=== PATIENT | male | born 1980 | race Caucasian/White ===

== ENCOUNTER 2018-01-09 23:58 | Inpatient (IN) | payer OTHER ==
[2018-01-10] MEDS ORDERED: NS 500 ML IV ONE (00:21)
[2018-01-10] MEDS ORDERED: IPRATROPIUM/ALBUTEROL 3 ML DEYVIAL IH ONE (00:21)
--- NOTE | 2018-01-10 00:27 | EDPHY ---
H & P Stated Complaint: Poss elevation sickness, Time Seen by Provider: 01/10/18 00:07 HPI/ROS: HPI The patient presents with cough and shortness of breath for the last several days. The patient has had a cough for the last 3-4 days which is intermittent, productive of a clear whitish sputum. Yesterday, he traveled on an airplane from [place] to [place] and drove to [place]. His symptoms worsened then. He continued to have a cough, however this morning his sputum became blood tinged. He felt generally short of breath throughout the course of the day and rested. He did not exert himself. He had a low-grade fever but has been checking his temperature at home and has not had anything more than 100. He does not have any chest pain. He does not have any leg swelling. He does not have any personal or family history of DVT PE. He is complaining of a frontal headache. He thought he had altitude sickness. He has never travel to altitude before. REVIEW OF SYSTEMS Constitutional: No fever, no chills. Eyes: No discharge. ENT: No sore throat. Cardiovascular: PNo chest pain, no palpitations. Respiratory: See HPI Gastrointestinal: No abdominal pain, no vomiting. Genitourinary: No hematuria. Musculoskeletal: No back pain. Skin: No rashes. Neurological: No headache. PMHx: Hypertension, not on medications Soc Hx: No tobacco use, positive for marijuana use, visiting from [place] PHYSICAL General Appearance: Alert, no distress Eyes: Pupils equal and round no pallor or injection ENT, Mouth: Mucous membranes moist Respiratory: Speaking full sentences, no retractions, coarse breath sounds bilaterally Cardiovascular: Tachycardic rate and regular rhythm Gastrointestinal: Abdomen is soft and non-tender, no masses, bowel sounds normal Neurological: A&O, moves all extremities Skin: Warm and dry, no rashes Musculoskeletal: Neck is supple non tender Extremities: symmetrical, full range of motion Psychiatric: Patient is oriented X 3, there is no agitation Source: Patient Exam Limitations: No limitations - Personal History Current Tetanus Diphtheria and Acellular Pertussis (TDAP): Yes - Medical/Surgical History Hx Asthma: No Hx Chronic Respiratory Disease: No Hx Diabetes: No Hx Cardiac Disease: No Hx Renal Disease: No Hx Cirrhosis: No Hx Alcoholism: No Hx HIV/AIDS: No Hx Splenectomy or Spleen Trauma: No Other PMH: borderline HTN - Social History Smoking Status: Never smoked Constitutional: Initial Vital Signs Temperature (C) 37.3 C 01/10/18 00:03 Heart Rate 120 H 01/10/18 00:03 Respiratory Rate 20 01/10/18 00:03 Blood Pressure 164/105 H 01/10/18 00:03 O2 Sat (%) 89 L 01/10/18 00:03 O2 Delivery Mode Nasal Cannula O2 (L/minute) 2 Allergies/Adverse Reactions: No Known Allergies Allergy (Unverified 01/10/18 00:02) Home Medications: Medication Instructions Recorded NK [No Known Home Meds] 01/10/18 Medical Decision Making - Diagnostics EKG Interpretation: EKG: Complete interpretation has been separately recorded in the [email or web address] archive. Summary impression: Left axis deviation with left anterior fascicular block Imaging Results: Chest x-ray two views shows right greater than left interstitial markings with fluid in the right fissure, interpreted by me, radiology interpretation is pending. CT scan of chest with IV contrast demonstrates no pulmonary embolism, there is right upper lobe and right middle lobe infiltrates which could be aspiration pneumonia verses pneumonia, high altitude pulmonary edema is less likely, discussed with Dr. Healy of Radiology. Imaging: Discussed imaging studies w/ pumper gauger apprentice Radiologist Procedures: Bedside cardiac Ultrasound- performed and interpreted by me. Indication: Shortness of breath Findings: Hyperdynamic, no pericardial effusion, IVC is distended, B lines present in the right lung field Impression: Distended IVC Differential Diagnosis: This is a 37-year-old healthy male who presents with cough and shortness of breath, over the last 1 day developing hemoptysis. On arrival, he is tachycardic, hypoxic. He is requiring 6 L nasal cannula to maintain oxygen saturations. His Differential diagnosis includes pulmonary embolism, pneumonia, influenza, bronchiectasis. 12:20 a.m. Initial patient encounter, explained diagnosis and treatment plan with the patient. I will start him on a small fluid bolus, neb. 1:16 a.m.- Patient's oxygen saturations have improved, especially while at rest. He is now in the low 90s at rest, however with ambulation, his oxygen levels are in the 70s. His labs have returned and do reveal elevated BNP and troponin. Given EKG showing no ST segment changes and low suspicion for ACS, I will not give him aspirin. The D-dimer is negative, I have a high suspicion for pulmonary embolism. It did a bedside ultrasound that reveals no right heart enlargement though IVC is enlarged and B lines are present. Plan for CT PE. 2:15 a.m.- Patient's CT scan demonstrates right upper and middle lobe airspace disease consistent with aspiration or pneumonia. There is no pulmonary embolism. His he feels well currently and is on about 2 L nasal cannula. I will treat him with ceftriaxone and azithromycin for community-acquired pneumonia. I do not see any aspiration risk in his case. I have discussed the case with the hospitalist Dr. Hook and we will admit the patient. I have explained the diagnosis and treatment plan with the patient. - Data Points Laboratory Results: Laboratory Results 01/10/18 00:20 01/10/18 00:20 Medications Given: Discontinued Medications Albuterol/Ipratropium (Duoneb) 3 ml IH EDNOW ONE Stop: 01/10/18 00:22 Last Admin: 01/10/18 00:31 Dose: 3 ml Sodium Chloride (Ns) 500 mls @ 1,000 mls/hr IV EDNOW ONE PRN Reason: Protocol Stop: 01/10/18 00:50 Last Admin: 01/10/18 00:31 Dose: 500 mls Sodium Chloride (Ns) 1,000 mls @ 0 mls/hr IV EDNOW ONE; Wide Open PRN Reason: Protocol Stop: 01/10/18 00:56 Last Admin: 01/10/18 02:16 Dose: 1,000 mls Azithromycin 500 mg/ Sodium (Chloride) 255 mls @ 255 mls/hr IV EDNOW ONE PRN Reason: Protocol Stop: 01/10/18 03:16 Last Admin: 01/10/18 03:22 Dose: 255 mls Ceftriaxone Sodium/Dextrose (Rocephin 1 Gm (Premix)) 50 mls @ 100 mls/hr IV EDNOW ONE PRN Reason: Protocol Stop: 01/10/18 02:46 Last Admin: 01/10/18 02:30 Dose: 50 mls Sodium Chloride (Ns) 1,000 mls @ 125 mls/hr IV CONT SERJIO Stop: 07/09/18 02:59 Last Admin: 01/10/18 03:22 Dose: 1,000 mls Departure - Departure Disposition: [facility] Acute Clinical Impression: Hypoxia, Elevated troponin I level Pneumonia Qualifiers: Pneumonia type: due to unspecified organism Laterality: right Lung location: unspecified part of lung Qualified Code(s): J18.9 - Pneumonia, unspecified organism Condition: Fair
[2018-01-10 00:29] LABS: PLATELET COUNT 216 10^3/uL (150-400)
--- NOTE | 2018-01-10 00:30 | CPEKG ---
Heart Rate: 106 RR Interval: 566 P-R Interval: 156 QRSD Interval: 86 QT Interval: 332 QTC Interval: 441 P [place]: 50 QRS [place]: -57 T Wave [place]: 30 EKG Severity - ABNORMAL ECG - EKG Impression: SINUS TACHYCARDIA EKG Impression: LEFT ANTERIOR FASCICULAR BLOCK EKG Impression: CONSIDER ANTEROSEPTAL INFARCT Electronically Signed By: Lolis Cantrell 10-Jan-2018 05:14:57
[2018-01-10] MEDS ORDERED: NS 1,000 ML IV ONE (00:55)
[2018-01-10] MEDS ORDERED: IOPAMIDOL (ISOVUE-300) 100 ML BTL ONE (01:13)
[2018-01-10] MEDS ORDERED: IOPAMIDOL (ISOVUE 370) 100 ML BTL IV ONE ×2 (01:14→01:41)
[2018-01-10] MEDS ORDERED: AZITHROMYCIN IV 500 MG in NS 250 ML IV ONE (02:17)
[2018-01-10] MEDS ORDERED: LORazepam 0.5 MG TAB PO PRN (02:58)
[2018-01-10] MEDS ORDERED: ALBUTEROL 3 ML DEYVIAL IH PRN (02:58)
[2018-01-10] MEDS ORDERED: ACETAMINOPHEN 325 MG TAB PO PRN (02:58)
[2018-01-10] MEDS ORDERED: diphenhydrAMINE 25 MG CAP PO PRN (02:58)
[2018-01-10] MEDS ORDERED: HYDROCODONE/APAP 5/325 TAB PO PRN (02:58)
[2018-01-10] MEDS ORDERED: ONDANSETRON 4 MG/2 ML VIAL IVP PRN (02:58)
[2018-01-10] MEDS ORDERED: NS 1,000 ML IV SCH (03:00)
--- NOTE | 2018-01-10 04:23 | PDGENHP ---
History and Physical - Chief Complaint Cough, shortness of breath - History of Present Illness Source-patient provides history appears reliable. EMR reviewed and case discussed with ED provider. HPI-this is a pleasant 37-year-old gentleman with past medical history significant for white coat hypertension who presents emergency department today with complaints of increasing cough minimally productive of previously white sputum and now blood-tinged, fatigue and dyspnea for the past 2 days since his arrival to [place] from [place]. Patient admits that he has been having some coughing prior to his arrival to [place]. Patient denies any fevers or chills. He has had some palpitations but no chest pain. Patient became increasingly concerned with rising heart rate 1 worsening dyspnea along with the red tinged sputum prompting patient to present to the emergency department for evaluation of possible altitude related pulmonary edema patient denies any orthopnea, lower extremity edema. monary edema. Patient denies any sick contacts. But he has been traveling and flew in from [place]. In the ED, patient was noted to be saturating 60% on room air at triage. He was brought in to the ED and required supplemental oxygen to maintain saturations greater than 90. Patient has had continued desats on supplemental oxygen while asleep into the 80s. Patient was started on azithromycin and Rocephin in the ED. History Information - Allergies/Home Medication List Allergies/Adverse Reactions: No Known Allergies Allergy (Unverified 01/10/18 00:02) I have personally reviewed and updated: family history, medical history, social history, surgical history - Past Medical History Additional medical history: Reports White coat hypertension - Surgical History Additional surgical history: Septoplasty - Family History Additional family history: Father with diabetes type 2, father and mother with DASHA - Social History Smoking Status: Never smoked Alcohol Use: Occasionally Drug Use: Marijuana (Rarely) Additional social history: Patient is . Visiting from [place]. Core-full Review of Systems Review of Systems: ROS: 10pt was reviewed & negative except for what was stated in HPI & below Constitutional: Reports: no symptoms EENMT: Reports: no symptoms, other (Wears glasses) Cardiac: Reports: no symptoms, palpitations. Denies: chest pain, irregular heart rate Respiratory: Reports: cough, shortness of breath. Denies: orthopnea, wheezing Gastrointestinal: Reports: no symptoms Genitourinary: Reports: no symptoms Muscolosketal: Reports: no symptoms Skin: Reports: no symptoms Neurological: Reports: headache Hematologic/Lymphatic: Reports: no symptoms Physical Exam Physical Exam: Selected Entries 01/10/18 00:03 Blood Pressure Automatic Method Heart Rate 120 H Respiratory 20 Rate O2 Sat (%) 89 L Temperature (C) 37.3 C Blood Pressure 164/105 H Mean Arterial 124 H Pressure (MAP) O2 Delivery Room Air Mode Temperature Oral Source Temp Pulse Resp BP Pulse Ox 37.0 C 100 19 156/92 H 92 01/10/18 03:05 01/10/18 03:05 01/10/18 03:05 01/10/18 03:05 01/10/18 03:05 O2 (L/minute) 2 Constitutional: no apparent distress, not in pain, other (NAD. Pleasant adult male is lying quietly in bed.) Eyes: PERRL, anicteric sclera, EOMI Cardiovascular: regular rate and rhythym, no murmur, rub, or gallop, systolic murmur, tachycardia (Low 100s), No edema Peripheral Pulses: 2+: dorsalis-pedis (R), dorsalis-pedis (L) Respiratory: no respiratory distress, reduced air movement, inspiratory crackles (Right middle lung hanks), No no rales or rhonchi, No clear to auscultation, No expiratory wheeze, No respiratory distress Gastrointestinal: normoactive bowel sounds, soft, non-tender abdomen, No tenderness, No distension Genitourinary: no bladder tenderness, No wick in urethra Skin: warm, normal color, no rashes or abrasions, No mottled Musculoskeletal: full muscle strength, other (Grossly normal), No generalized weakness Neurologic: AAOx3, sensation intact bilaterally, other (Nonfocal exam), No facial droop Psychiatric: not anxious, not encephalopathic, thought process linear Lab Data & Imaging Review 01/10/18 00:20 01/10/18 00:20 WBC 14.07 10^3/uL (3.80-9.50) H 01/10/18 00:20 RBC 5.20 10^6/uL (4.40-6.38) 01/10/18 00:20 Hgb 15.9 g/dL (13.7-17.5) 01/10/18 00:20 Hct 46.2 % (40.0-51.0) 01/10/18 00:20 MCV 88.8 fL (81.5-99.8) 01/10/18 00:20 MCH 30.6 pg (27.9-34.1) 01/10/18 00:20 MCHC 34.4 g/dL (32.4-36.7) 01/10/18 00:20 RDW 12.3 % (11.5-15.2) 01/10/18 00:20 Plt Count 216 10^3/uL (150-400) 01/10/18 00:20 MPV 10.1 fL (8.7-11.7) 01/10/18 00:20 Neut % (Auto) 76.1 % (39.3-74.2) H 01/10/18 00:20 Lymph % (Auto) 14.7 % (15.0-45.0) L 01/10/18 00:20 Mcleod % (Auto) 6.9 % (4.5-13.0) 01/10/18 00:20 Eos % (Auto) 1.5 % (0.6-7.6) 01/10/18 00:20 Baso % (Auto) 0.4 % (0.3-1.7) 01/10/18 00:20 Nucleat RBC Rel Count 0.0 % (0.0-0.2) 01/10/18 00:20 Absolute Neuts (auto) 10.72 10^3/uL (1.70-6.50) H 01/10/18 00:20 Absolute Lymphs (auto) 2.07 10^3/uL (1.00-3.00) 01/10/18 00:20 Absolute Monos (auto) 0.97 10^3/uL (0.30-0.80) H 01/10/18 00:20 Absolute Eos (auto) 0.21 10^3/uL (0.03-0.40) 01/10/18 00:20 Absolute Basos (auto) 0.05 10^3/uL (0.02-0.10) 01/10/18 00:20 Absolute Nucleated RBC 0.00 10^3/uL (0-0.01) 01/10/18 00:20 Immature Gran % 0.4 % (0.0-1.1) 01/10/18 00:20 Immature Gran # 0.05 10^3/uL (0.00-0.10) 01/10/18 00:20 D-Dimer < 0.27 ug/mLFEU (0.00-0.50) 01/10/18 00:20 VBG Lactic Acid 1.9 mmol/L (0.7-2.1) 01/10/18 00:20 Sodium 144 mEq/L (135-145) 01/10/18 00:20 Potassium 4.4 mEq/L (3.5-5.2) 01/10/18 00:20 Chloride 104 mEq/L (97-110) 01/10/18 00:20 Carbon Dioxide 27 mEq/l (22-31) 01/10/18 00:20 Anion Gap 13 mEq/L (8-16) 01/10/18 00:20 BUN 12 mg/dL (7-23) 01/10/18 00:20 Creatinine 0.8 mg/dL (0.7-1.3) 01/10/18 00:20 Estimated GFR > 60 01/10/18 00:20 Glucose 128 mg/dL (70-100) H 01/10/18 00:20 Calcium 9.0 mg/dL (8.5-10.4) 01/10/18 00:20 Troponin I 0.052 ng/mL (0.000-0.034) H 01/10/18 00:20 NT-Pro-B Natriuret Pep 423 pg/mL (0-125) H 01/10/18 00:20 Imaging Review: CXR - image and report reviewed myself. RML infiltrate. prelim CT chest angio - image and relim report pending 1. No PE 2. RUL and RLL airspace disease - pneumonia vs aspiration. 3. Clear left lung - doubtful for high alt pulm edema D/W Dr. Cantrell at 2:15 am rh Visualized and Interpreted Chest x-ray results: Yes Visualized and Interpreted imaging results: Yes Visualized and Interpreted EKG results: Yes EKG additional interpertation: Sinus tachycardia in the 1 100s. Left anterior fascicular block. QTC 441 Assessment & Plan Assessment: Pneumonia (Acute) - right middle lobe pneumonia. Patient is a non started on Rocephin and azithromycin for community-acquired coverage. Blood cultures are pending. Will try to obtain a sputum sample. Based on imaging and unilateral findings of the less likely to be a pulmonary edema. Patient also had symptoms several days prior to arrival to altitude. Continue supplemental oxygen for hypoxia. Continue Rocephin and azithromycin Hypoxia (Acute) - secondary to pneumonia as noted above. Continue with supplemental oxygen. Patient continues to have desaturations to 88%. He is occasionally removing his oxygen tubing. Elevated troponin I level (Acute) - likely demand. Patient denies any chest pain. Will repeat troponin in a.m.. Benign essential hypertension - patient with untreated blood pressure. Ideally patient would have improved control to SBP less than 140 over 90 for H. Hydralazine will be made available p.r.n.. Hyperglycemia-mildly elevated but this is a nonfasting lab. FEN - continue IV fluids. Electrolyte monitoring replacement if needed. Diet as tolerated. PPX-SCDs. Patient low risk and CT scan negative for PE. Will hold off on anticoagulation encourage mobilization. Cor-patient is full code Disposition - patient admitted to demand in setting of significant hypoxia. Patient denies any chest pain. Will request exertional room air challenge in the a.m.. Patient may require some supplemental oxygen at discharge if obtainable as patient is from [id number].
[2018-01-10 06:54] LABS: PLATELET COUNT 182 10^3/uL (150-400)
--- NOTE | 2018-01-10 09:50 | HOSPPROG ---
Hospitalist Progress Note Assessment/Plan: * CAP * azithro and ceftriaxone *hypoxic resp failure * will wean as able * will need 02 for flight home on friday Subjective: feels better Objective: Vital Signs Temp Pulse Resp BP Pulse Ox 37.0 C 100 19 156/92 H 86 L 01/10/18 03:05 01/10/18 03:05 01/10/18 03:05 01/10/18 03:05 01/10/18 04:36 Laboratory Results 01/10/18 06:40 01/10/18 06:40 01/09/18 01/10/18 01/11/18 05:59 05:59 06:59 Intake Total 805 Balance 805 - Physical Exam Constitutional: no apparent distress, appears nourished, not in pain Eyes: anicteric sclera, EOMI Ears, Nose, Mouth, Throat: moist mucous membranes, hearing normal Cardiovascular: regular rate and rhythym, no murmur, rub, or gallop Respiratory: no respiratory distress, no rales or rhonchi, clear to auscultation Skin: warm Neurologic: AAOx3 Psychiatric: interacting appropriately, not anxious, not encephalopathic, thought process linear ICD10 Worksheet Patient Problems: Problems Problem Status Onset Elevated troponin I level Acute Hypoxia Acute Pneumonia Acute
--- NOTE | 2018-01-10 12:15 | ASMTCMCOM ---
CM Note CM Note Notes: Patient discussed in rounds. 37 year old male admitted via ED with hypoxia and dyspnea, Found to have pneumonia, He has been changed to oral antb and will dc tomorrow, The physician has asked that her call his airline to inquire about return travel to [place] with oxygen, RN is to discuss with RT, CM available should needs arise. Date Signed: 01/10/2018 12:14 PM Electronically Signed By:Bessy Fang RN
--- NOTE | 2018-01-10 12:43 | PDHOMEO2F ---
Home Oxygen Face to Face Home Orders: I certify that a physician or a nurse practitioner or physician's child welfare assistant has had a [id number] encounter with this patient on the date of this order due to the diagnosis listed, which relates to the primary reason the patient requires home oxygen. Alternative treatments have been tried, or considered, and deemed ineffective. It is anticipated that supplemental oxygen will result in improvement with treatment. Home oxygen qualifying diagnosis: pneumonia SpO2 on room air (%): 82 Frequency of home oxygen needed: continuous Home oxygen liters per minute: 2 Home oxygen delivery device: nasal cannula Concentrator: Yes E-tanks for mobility and back up: Yes If ordering portable O2, is the patient mobile in the home?: Yes I certify that, based on these findings, the home oxygen is medically necessary for this patient for the following length of time. Length of time home oxygen needed: 1 month
[2018-01-11] MEDS ORDERED: cefTRIAXone 1 GM in STERILE WATER INJ 10 ML IV SCH (03:00)
[2018-01-11] MEDS ORDERED: AZITHROMYCIN IV 500 MG in NS 250 ML IV SCH (03:00)
[2018-01-11 04:03] LABS: PLATELET COUNT 179 10^3/uL (150-400)
--- NOTE | 2018-01-11 08:49 | HOSPPROG ---
Hospitalist Progress Note Assessment/Plan: * CAP * azithro and ceftriaxone *hypoxic resp failure * will wean as able * will need 02 for flight home on friday * guicho bruce is in [place] so it is probably best he stay tonight and dc tomorrow. He will get o2 for the flight. I suspect he won't need o2 while hanging out in [place] waiting for his flight. * Mild trop leak * d/t hypoxia/strain * no risk factors for CAD Subjective: feeling better Objective: Vital Signs Temp Pulse Resp BP Pulse Ox 36.7 C 97 16 149/97 H 95 01/11/18 07:25 01/11/18 07:25 01/11/18 07:25 01/11/18 07:25 01/11/18 07:25 Laboratory Results 01/11/18 03:09 01/11/18 03:09 01/10/18 01/11/18 01/12/18 04:59 05:59 05:59 Intake Total Output Total Balance - Physical Exam Constitutional: no apparent distress, appears nourished, not in pain Eyes: anicteric sclera, EOMI Ears, Nose, Mouth, Throat: moist mucous membranes Cardiovascular: regular rate and rhythym, no murmur, rub, or gallop Respiratory: no respiratory distress, no rales or rhonchi, clear to auscultation Skin: warm Neurologic: AAOx3 Psychiatric: interacting appropriately, not anxious, not encephalopathic, thought process linear ICD10 Worksheet Patient Problems: Problems Problem Status Onset Elevated troponin I level Acute Hypoxia Acute Pneumonia Acute
[2018-01-11] MEDS: AZITHROMYCIN 250 MG TAB PO SCH (09:03)
--- NOTE | 2018-01-11 09:31 | PDMN ---
Medical Necessity Medical necessity: C/M review: Patient meets INPT criteria under [facility] Pneumonia, community acquired: Acute and persistent - pneumonia (RML on CXT and CT angiogram), hypoxic respiratory failure, 01/10/2018 86% RA sat, 01/11/2018 84% RA sat, mild troponin leak due to hypoxia, cardiac strain, troponins - 0.052 , 0.037, WBC 14.07, 11.14, 8.55, requiring ongoing IV Ceftriaxone QD, oral Azithramycin, pulse oximetry, supplemental O2, comorbid patient travelled from [place] to [place] by plane prior to this admission. anticipates > 2 MN LOS for ongoing med nec for eval and TX of above.
[2018-01-12 07:15] VITALS: BP 134/88; PULSE 93; RESP 14; TEMP 98.5; O2SAT 93
[2018-01-12] MEDS: AZITHROMYCIN 250 MG TAB PO SCH (09:26)
--- NOTE | 2018-01-12 09:30 | ASMTCMCOM ---
CM Note CM Note Notes: Patient has been medically cleared for discharge to home. Oxygen has been set up by the patient and is to be delivered to his hospital room prior to discharge. No other needs at this time. CM available should needs arise. Date Signed: 01/12/2018 09:29 AM Electronically Signed By:Bessy Fang RN
--- NOTE | 2018-01-12 09:40 | GDS ---
[f rep st] DISCHARGE SUMMARY DIAGNOSES: 1. Community-acquired pneumonia with acute hypoxic respiratory failure. 2. Mild elevated troponin, likely secondary to cardiac strain due to severe hypoxia. PROCEDURES DONE: 1. Chest and thoracic CT angiogram. No evidence of thromboembolic disease. Right upper and right l ower lobe pneumonia. 2. Electrocardiogram. Sinus tachycardia, no ischemia noted. Poor R-wave progression. HOSPITAL COURSE: A 37-year-old, admitted with increased cough and shortness of breath. Evaluation i ncluded, he is here visiting from [place]. CT angiogram was done which showed acute consolidation rig ht upper, right lower lobes, likely consolidation with pneumonia rather than high-altitude pulmonary edema. He was treated with antibiotics, oxygen, and over the course of his hospitalization, he impro juliana significantly. He was noted to be saturating at 60% at room air at triage. On admission, he did have mild elevated troponin, indeterminate range, which is likely from cardiac strain from his sever e hypoxia on admission. He experienced no significant chest pain. His EKG showed no acute ischemia. He was treated with antibiotics and over the course of his hospitalization, his oxygen saturation i mproved and he is feeling much improved at time of baseline. He plans on flying back to [facility]. CONDITION ON DISCHARGE: Good. He is 92% on room air. Heart rate 93, blood pressure 134/88. He has been afebrile. At discharge, he is alert and oriented. Lungs are relatively clear. DISCHARGE MEDICATIONS: Please see discharge medication form. He will be discharged on Zithromax and Ceftin. FOLLOWUP INSTRUCTIONS: He should follow up with his primary care provider in [place]. He will be giv en an oxygen concentrator to take on the airplane for his flight home. TOTAL TIME SPENT: With patient on day of discharge and coordination of care is 35 minutes. /[id number]/MODL
== END 2018-01-12 12:49 | disposition home or self-care (01) | DRG 193 ==
LOC: F2W 01-10 03:00 → OBSVTOIN 01-11 09:10
PROVIDERS: ADMIT Family Medicine; ATTEND Internal Medicine
DX: J18.9 Pneumonia, unspecified organism (principal); J96.01 Acute respiratory failure with hypoxia; R79.89 Other specified abnormal findings of blood chemistry; I10 Essential (primary) hypertension
CPT/HCPCS: 96365; G0378; J0456; J0696; Q9967